=== PATIENT | male | born 1950 | race Hispanic/Latino ===

== ENCOUNTER 2017-04-12 08:26 | Day surgery (SDC) | payer MEDICARE, OTHER ==
[~2017-04-12 08:26] MED LIST: ANCEF/STERILE WATER 2 GM/20 ML 2 GM/20 ML SYRINGE IV NR; MARCAINE-EPI 0.25%-1:200,000 INFILTRATI ONE
[2017-04-12 09:36] LABS: Basophils % (Auto) 0.8 % (0.0-1.8); Eosinophils % (Auto) 2.8 % (0.0-4.3); Hematocrit 41.4 % (35.5-45.6); Hemoglobin 14.6 gm/dl (11.8-15.2); Mean Corpuscular HGB Conc 35 % (32-34); Mean Corpuscular Hemoglobin 32 pg (28-32); Mean Corpuscular Volume 91 fl (84-94); Platelet Count 117 K/mm3 (140-440); Red Blood Count 4.55 M/mm3 (3.65-5.03); Red Cell Distribution Width 12.5 % (13.2-15.2); White Blood Count 4.7 K/mm3 (4.5-11.0)
--- NOTE | 2017-04-12 09:38 | Anesthesia Consultation ---
<JERARDO MOJICA J - Last Filed: 04/12/17 09:36> Anesthesia Consult and Med Hx - Airway Anesthetic Teeth Evaluation: Good ROM Head & Neck: Adequate Mental/Hyoid Distance: Adequate Mallampati Class: Class II Intubation Access Assessment: Good - Pulmonary Exam CTA: Yes - Cardiac Exam Cardiac Exam: RRR - Pre-Operative Health Status ASA Pre-Surgery Classification: ASA3 Proposed Anesthetic Plan: General Nerve Block: IS - Pulmonary Hx Smoking: No SOB: Yes (SOB) Hx Sleep Apnea: Yes (DX SLEEP APNEA WITH CPAP USE) - Cardiovascular System Hx Hypertension: No Hx Coronary Artery Disease: Yes (Multiple caths + balloon) Hx Heart Attack/AMI: Yes (1995) Hx Pacemaker: Yes (AICD) Hx Internal Defibrillator: Yes (HX VT) - Central Nervous System Hx Back Pain: Yes - Other Systems Hx Alcohol Use: Yes (WINE QD) - Additional Comments Anesthesia Medical History Comments: No previous complications. Shoulder block discussed. <MICHELLE DANIELS N - Last Filed: 04/12/17 11:17> Anesthesia Consult and Med Hx Date of service: 04/12/17 - Airway Anesthetic Teeth Evaluation: Good (Left upper incisor implant) Intubation Access Assessment: Probably Good - Pulmonary Hx Sleep Apnea: Yes (DX SLEEP APNEA. Uses CPAP) - Cardiovascular System Hx Hypertension: No (CHD, EF-25%. HL) Hx Coronary Artery Disease: Yes (Multiple caths + balloon. 3 cardiac stents, LAD per patient) Hx Valvular Heart Disease: Yes (mild to moderate AI. ) - Additional Comments Anesthesia Medical History Comments: h/o Prostate CA s/p seeding and radiation.
--- NOTE | 2017-04-12 09:38 | Anesthesia Day of Surgery ---
<JERARDO MOJICA J - Last Filed: 04/12/17 09:38> Anesthesia Day of Surgery - Day of Surgery Patient Examined: Yes Patient H&P Reviewed: Yes Patient is NPO: Yes <MICHELLE DANIELS N - Last Filed: 04/12/17 11:19> Anesthesia Day of Surgery - Day of Surgery Beta Blockers: Yes Cardiac Clearance: Yes (on chart from Dr Vikram Schroeder. AICD to be interrogated after surgery)
[2017-04-12] MEDS ORDERED: VERSED IV PRN (09:39)
[2017-04-12 09:46] LABS: INR 0.97 (0.87-1.13)
[2017-04-12 09:47] LABS: Partial Thromboplastin Time 24.7 Sec. (24.2-36.6)
[2017-04-12 09:48] LABS: Blood Urea Nitrogen 14 mg/dL (9-20); Calcium 9.2 mg/dL (8.4-10.2); Carbon Dioxide 28 mmol/L (22-30); Glucose 111 mg/dL (75-100)
[2017-04-12 09:49] LABS: Anion Gap 17 mmol/L; Chloride 100.2 mmol/L (98-107); Potassium 4.2 mmol/L (3.6-5.0); Sodium 141 mmol/L (137-145)
[2017-04-12] MEDS ORDERED: NACL 0.9% 1000 ML 1,000 ML IV SCH ×2 (10:00→12:00)
[2017-04-12] MEDS ORDERED: MARCAINE-EPI 0.5%-1:200,000 INFILTRATI ONE (10:40)
[2017-04-12] MEDS ORDERED: DIPRIVAN 10 MG/ML IV ONE (10:54)
[2017-04-12] MEDS ORDERED: SUBLIMAZE ONE (10:54)
[2017-04-12] MEDS ORDERED: XYLOCAINE MPF 2% ONE ×2 (10:54→13:36)
[2017-04-12] MEDS ORDERED: DILAUDID IV PRN (11:17)
[2017-04-12] MEDS ORDERED: ZOFRAN IV PRN (12:15)
[2017-04-12] MEDS ORDERED: ADRENALIN IV ONE (12:57)
[2017-04-12] MEDS ORDERED: ePHEDrine SULFATE ONE (13:22)
[2017-04-12] MEDS ORDERED: AMIDATE IV ONE (13:36)
[2017-04-12] MEDS ORDERED: ROBINUL ONE (13:47)
[2017-04-12] MEDS ORDERED: ZEMURON IV ONE (14:00)
[2017-04-12] MEDS ORDERED: NEOSTIGMINE ONE (14:00)
[2017-04-12] MEDS ORDERED: ZOFRAN ONE (14:02)
[2017-04-12] MEDS ORDERED: MARCAINE-EPI 0.25%-1:200,000 INFILTRATI ONE (14:15)
--- NOTE | 2017-04-12 14:58 | Post Anesthesia Evaluation ---
- Post Anesthesia Evaluation Patient Participated: Yes Airway Patent: Yes Stable Respiratory Function: Yes Nausea/Vomiting: No Temp > 96.8F: Yes Pain Manageable: Yes Adequeate Hydration: Yes Anesthesia Complications: No
[2017-04-12] MEDS ORDERED: MARCAINE 0.25% INFILTRATI ONE (15:24)
[2017-04-12] MEDS ORDERED: ADRENALIN ONE (15:24)
[2017-04-12] MEDS ORDERED: MARCAINE-EPI/PF 0.25%-1:200,000 INFILTRATI ONE (15:27)
[2017-04-12 19:19] VITALS: BP 129/64
== END 2017-04-12 15:55 | disposition home or self-care (01) ==
LOC: OR 08:26
PROVIDERS: ATTEND Orthopaedic Surgery
DX: M75.21 Bicipital tendinitis, right shoulder (principal); M19.011 Primary osteoarthritis, right shoulder; M75.41 Impingement syndrome of right shoulder; G47.30 Sleep apnea, unspecified; I25.10 Atherosclerotic heart disease of native coronary artery without angina pectoris; Z95.810 Presence of automatic (implantable) cardiac defibrillator; Z72.89 Other problems related to lifestyle; Z95.5 Presence of coronary angioplasty implant and graft; Z85.46 Personal history of malignant neoplasm of prostate; Z86.79 Personal history of other diseases of the circulatory system; Z88.8 Allergy status to other drugs, medicaments and biological substances; Z91.041 Radiographic dye allergy status; Z91.013 Allergy to seafood
CPT/HCPCS: 29823; 29828; 36415; 80048; 85025; 85610; 85730; C1713; J0171; J0690; J2250; J2405; J2710; J3010; J7030; J2704